=== PATIENT | male | born 1945 | race Caucasian/White ===

== ENCOUNTER 2019-12-13 06:33 | Day surgery (SDC) | payer MEDICARE ==
[2019-12-11 14:51] LABS: BASOPHILS % (AUTO) 0.7 % (0.0-5.0); EOSINOPHILS % (AUTO) 1.3 % (0.0-8.0); HEMATOCRIT 40.8 % (42-54); LYMPHOCYTES % (AUTO) 30.6 % (21.0-51.0); MEAN CORPUSCULAR HEMOGLOBIN 30.6 pg (27.0-33.0); MEAN CORPUSCULAR HGB CONC 33.3 g/dL (32.0-36.0); MEAN CORPUSCULAR VOLUME 91.7 fL (79-99); MONOCYTES % (AUTO) 5.6 % (3.0-13.0); NEUTROPHILS % (AUTO) 61.5 % (40.0-77.0); PLATELET COUNT (AUTO) 314 K/uL (130-400); RED BLOOD CELL COUNT(AUTO) 4.45 MIL/uL (4.50-6.20); RED CELL DISTRIBUTION WIDTH 14.4 % (11.0-15.5); WHITE BLOOD COUNT (AUTO) 6.8 K/uL (4.8-10.8)
[2019-12-11 15:06] LABS: POTASSIUM 4.2 mmol/L (3.5-5.1)
[2019-12-11 15:32] VITALS: BP 156/83
[2019-12-13] VITALS (15 sets, daily range): BP systolic 111–190; BP diastolic 64–86
[~2019-12-13] VITALS: Ht 170.2 cm; Wt 67.0 kg
[~2019-12-13 06:33] MED LIST: ASPI-555 PO; LOSA50TA64 PO; MELO-106 PO; METF-444 PO; ROSU20TA31 PO; TAMS-1 PO
[2019-12-13] MEDS ORDERED: PROPOFOL 10 MG/ML 20ML VIAL IV ONE (06:40)
[2019-12-13] MEDS ORDERED: LIDOCAINE PF 2% 5ML ABBOJECT ONE (06:40)
[2019-12-13] MEDS ORDERED: SUCCINYLCHOLINE 200MG/10ML SYR ONE (06:40)
[2019-12-13] MEDS ORDERED: FENTANYL CITRATE PF 50 MCG/1 ML 2ML VIAL ONE (06:41)
[2019-12-13] MEDS ORDERED: BUPIVACAINE/PF 0.25% 30ML VIAL IJ ONE (07:05)
[2019-12-13] MEDS ORDERED: SODIUM CHLORIDE 0.9% 1000ML 1,000 ML IV ONE (07:09)
--- NOTE | 2019-12-13 07:20 | NUR ---
SURGICAL PREP pt clipper prep right ing area by Jazmine Parra Addendum: 12/13/19 at 0746 by JESSI DAVE RN RN Amended: Links added.
[2019-12-13] MEDS ORDERED: ROCURONIUM 10MG/1ML SYR 10 MG/ML ML ONE (07:42)
[2019-12-13] MEDS ORDERED: EPHEDRINE SULFATE 50 MG/ML AMPULE ONE (07:52)
[2019-12-13] MEDS ORDERED: GLYCOPYRROLATE 1 MG/5 ML SYRINGE ONE (08:27)
[2019-12-13] MEDS ORDERED: DEXAMETHASONE SOD PHOSPHATE 4 MG/ML 1ML VIAL ONE (08:27)
[2019-12-13] MEDS ORDERED: NEOSTIGMINE 5MG/5ML SYR IV ONE (08:27)
[2019-12-13] MEDS ORDERED: ONDANSETRON HCL 4 MG/2 ML VIAL ONE (08:27)
[2019-12-13] MEDS ORDERED: MEPERIDINE-PF 25 MG/ML SYG ONE (08:28)
[2019-12-13] MEDS ORDERED: KETOROLAC TROMETHAMINE 30MG/ML ONE (08:28)
--- NOTE | 2019-12-13 09:50 | NUR ---
ASSESSMENT RECEIVED PT FROM PACU STAFF MENDY RN. PT DOING WELL. [id number]. DRSG TO RIGHT INGUINAL HERNIA DRY AND INTACT. SOFT TO TOUCH. SISTER AT BEDSIDE.
--- NOTE | 2019-12-13 10:35 | NUR ---
DISCHARGE ORAL AND WRITTEN DISCHARGE INSTRUCTIONS GIVEN TO PT AND PTS SISTER ALONG WITH PRESCRIPTION. NO OTHER QUESTIONS AT THIS TIME. INSTRUCTED ON IMPORTANCE OF KEEPING DRSG TO GROIN DRY AND INTACT.
== END 2019-12-13 10:40 | disposition home or self-care (01) ==
LOC: DAH 06:33
PROVIDERS: ATTEND Surgery
DX: K40.90 Unilateral inguinal hernia, without obstruction or gangrene, not specified as recurrent (principal); M06.9 Rheumatoid arthritis, unspecified; E11.9 Type 2 diabetes mellitus without complications; I10 Essential (primary) hypertension; Z90.49 Acquired absence of other specified parts of digestive tract; Z98.890 Other specified postprocedural states; Z79.899 Other long term (current) drug therapy; Z88.8 Allergy status to other drugs, medicaments and biological substances; Z72.89 Other problems related to lifestyle; Z79.82 Long term (current) use of aspirin; Z88.5 Allergy status to narcotic agent; Z82.49 Family history of ischemic heart disease and other diseases of the circulatory system
CPT/HCPCS: 36415; 49505; 80048; 82948 ×2; 85025; 93005; A4215; A4221; A4222; A4223; A4450; A4452; A4663; A6260; C1781; J0330; J1100; J1885; J2001; J2175; J2405; J2704; J2710; J3010; J3490 ×3; J7030 ×2

== ENCOUNTER 2023-01-03 11:01 | Emergency (ER) | payer MEDICARE ==
[~2023-01-03] VITALS: Ht 170.2 cm; Wt 73.0 kg
[~2023-01-03 11:01] MED LIST changes: -ASPI-555 PO; +ASPI-556 PO
[2023-01-03 11:16] VITALS: BP 137/85
== END 2023-01-03 12:30 | disposition home or self-care (01) ==
LOC: EDH 11:01
DX: L98.8 Other specified disorders of the skin and subcutaneous tissue (principal); E11.9 Type 2 diabetes mellitus without complications; Z79.84 Long term (current) use of oral hypoglycemic drugs; Z88.5 Allergy status to narcotic agent; Z79.1 Long term (current) use of non-steroidal anti-inflammatories (NSAID)
CPT/HCPCS: 99281